=== PATIENT | male | born 1990 | race African-American/Black ===

== ENCOUNTER 2017-08-24 21:38 | Emergency (ER) | payer OTHER ==
[~2017-08-24] VITALS: Ht 208.3 cm; Wt 91.9 kg
[2017-08-24 21:41] VITALS: TEMP 36.8; Ht 208.3 cm; Wt 91.9 kg
[2017-08-24] MEDS ORDERED: LIDOCAINE/EPINEPHRINE 1% 20 ML VIAL INFIL ONE (22:00)
[2017-08-24] MEDS ORDERED: AMOXICILLIN/CLAVULANATE TAB 875 MG TAB PO STA (22:07)
[2017-08-24] MEDS ORDERED: SRQ200 PO (22:26)
[2017-08-24] MEDS ORDERED: IBUP-1459 PO (22:26)
[2017-08-24] MEDS ORDERED: SRQ/200 PO (22:26)
[2017-08-24] MEDS ORDERED: AMOX875T PO (22:33)
[2017-08-24 22:36] VITALS: BP 127/87; PULSE 78; O2SAT 98
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
== END 2017-08-24 22:41 | disposition home or self-care (01) ==
LOC: C.EDB 21:41 → C.EDD 22:41
DX: S01.512A Laceration without foreign body of oral cavity, initial encounter (principal); W50.0XXA Accidental hit or strike by another person, initial encounter; Y92.149 Unspecified place in prison as the place of occurrence of the external cause; F20.9 Schizophrenia, unspecified; Z79.899 Other long term (current) drug therapy; Z91.011 Allergy to milk products